=== PATIENT | female | born 1975 | race Two or more races ===

== ENCOUNTER 2016-05-15 08:59 | Emergency (ER) | payer OTHER ==
[2016-05-15 09:15] VITALS: BP 134/91
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
== END 2016-05-15 11:50 | disposition home or self-care (01) ==
LOC: UCEAST 08:59
DX: J32.9 Chronic sinusitis, unspecified (principal); N89.8 Other specified noninflammatory disorders of vagina; R35.0 Frequency of micturition; E11.9 Type 2 diabetes mellitus without complications; Z90.49 Acquired absence of other specified parts of digestive tract; Z32.02 Encounter for pregnancy test, result negative; Z77.22 Contact with and (suspected) exposure to environmental tobacco smoke (acute) (chronic)
CPT/HCPCS: 81002; 81025; 87070; 87086; 87480; 87491; 87510; 87591; 87661; 99212; G0463

== ENCOUNTER 2016-05-19 08:49 | Emergency (ER) | payer OTHER ==
[2016-05-19] MEDS ORDERED: Ketorolac INJ* 60 MG/2 ML VIAL IM ONE (12:31)
[2016-05-19] MEDS ORDERED: LoraTADine TAB(NF) 10 MG TAB (AUTOSUB to CETIRIZINE) PO ONE (12:35)
[2016-05-19] MEDS ORDERED: Cetirizine* 10 MG TAB PO SCH (15:00)
[2016-05-19 16:19] VITALS: BP 136/82
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
== END 2016-05-19 16:18 | disposition home or self-care (01) ==
LOC: ED 08:49
DX: J32.9 Chronic sinusitis, unspecified (principal); J45.909 Unspecified asthma, uncomplicated; I10 Essential (primary) hypertension; G47.30 Sleep apnea, unspecified; E11.9 Type 2 diabetes mellitus without complications
CPT/HCPCS: 96372; 99283; A9270-GY; J1885

== ENCOUNTER 2016-08-08 07:48 | Emergency (ER) | payer MEDICAID, OTHER ==
[2016-08-08 08:08] VITALS: BP 152/81
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
== END 2016-08-08 08:57 | disposition home or self-care (01) ==
LOC: UCEAST 07:48
DX: H65.90 Unspecified nonsuppurative otitis media, unspecified ear (principal); J32.9 Chronic sinusitis, unspecified; B37.0 Candidal stomatitis; J45.909 Unspecified asthma, uncomplicated; E66.9 Obesity, unspecified
CPT/HCPCS: 99212; G0463

== ENCOUNTER 2016-08-14 20:44 | Emergency (ER) | payer MEDICAID ==
[2016-08-14 21:14] VITALS: BP 146/84
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
== END 2016-08-14 21:37 | disposition home or self-care (01) ==
LOC: UCEAST 20:44
DX: J06.9 Acute upper respiratory infection, unspecified (principal); R05 Cough; E11.9 Type 2 diabetes mellitus without complications; I10 Essential (primary) hypertension; F41.8 Other specified anxiety disorders; Z90.49 Acquired absence of other specified parts of digestive tract; Z77.22 Contact with and (suspected) exposure to environmental tobacco smoke (acute) (chronic)
CPT/HCPCS: 99212; G0463

== ENCOUNTER 2017-01-14 15:11 | Emergency (ER) | payer OTHER ==
[2017-01-14] MEDS ORDERED: LORazepam TAB(*) 1 MG PO ONE (15:42)
[2017-01-14 16:14] LABS: Hematocrit 35 % (35-47); Hemoglobin 11.4 g/dl (12.0-16.0); Mean Corpuscular HGB Conc 33 g/dl (31-36); Mean Corpuscular Hemoglobin 27 pg (27-31); Mean Corpuscular Volume 84 fL (80-97); Mean Platelet Volume 8 um3 (7.4-10.4); Red Blood Count 4.16 10^6/ul (4.0-5.4); Red Cell Distribution Width 14 % (10.5-15); White Blood Count 10.9 10^3/ul (3.5-10.8)
[2017-01-14 16:25] LABS: ALT 36 U/L (7-52); AST 22 U/L (13-39); Alkaline Phosphatase 65 U/L (34-104); Anion Gap 7 mmol/L (2-11); BUN/Creatinine Ratio 11.8 (8-20); Blood Urea Nitrogen 8 mg/dL (6-24); CO2 Carbon Dioxide 27 mmol/L (22-32); Calcium 8.6 mg/dL (8.6-10.3); Chloride 100 mmol/L (101-111); EGFR African American 120.9 (>60); Globulin 3.5 g/dL (2-4); Glucose 99 mg/dL (70-100); Sodium 134 mmol/L (133-145); Total Protein 7.5 g/dL (6.4-8.9)
[2017-01-14] MEDS ORDERED: Potassium Chlor TAB* 20 MEQ TAB.ER PO ONE (16:28)
[2017-01-14 16:33] LABS: Urine Bacteria Absent (Absent); Urine Bilirubin Negative (Negative); Urine Glucose Negative (Negative); Urine Nitrite Negative (Negative)
[2017-01-14 16:39] LABS: Benzodiazepine Urine Screen None Detected (None Detect)
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
[2017-01-14 17:06] VITALS: BP 132/85
[2017-01-14 17:21] LABS: Acetaminophen < 15 mcg/mL; Alcohol < 10 mg/dL (<10); Salicylate < 2.50 mg/dL (<30)
[2017-01-14 17:36] LABS: TSH (Thyroid Stimulating Horm) 1.01 mcIU/mL (0.34-5.60)
== END 2017-01-14 17:05 | disposition home or self-care (01) ==
LOC: ED 15:11
DX: F41.9 Anxiety disorder, unspecified (principal); R20.2 Paresthesia of skin; Z04.8 Encounter for examination and observation for other specified reasons; E11.9 Type 2 diabetes mellitus without complications; I10 Essential (primary) hypertension; J45.909 Unspecified asthma, uncomplicated; G47.10 Hypersomnia, unspecified; G47.30 Sleep apnea, unspecified; F32.9 Major depressive disorder, single episode, unspecified; Z90.49 Acquired absence of other specified parts of digestive tract
CPT/HCPCS: 36415; 80053; 80307; 80320; 80329; 81003; 81015; 84443; 85025; 99282; A9270-GY; G0480

== ENCOUNTER 2017-05-09 18:59 | Emergency (ER) | payer SELFPAY ==
[2017-05-09 19:22] VITALS: BP 151/94
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
== END 2017-05-09 20:50 | disposition home or self-care (01) ==
LOC: ED 18:59
DX: Z04.1 Encounter for examination and observation following transport accident (principal); R51 Headache; M51.34 Other intervertebral disc degeneration, thoracic region; M54.9 Dorsalgia, unspecified; Z86.79 Personal history of other diseases of the circulatory system; Z86.39 Personal history of other endocrine, nutritional and metabolic disease
CPT/HCPCS: 72070; 72110; 99282

== ENCOUNTER 2018-06-07 10:16 | Emergency (ER) | payer OTHER ==
[2018-06-07 12:58] VITALS: BP 143/83
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
== END 2018-06-07 13:25 | disposition short-term general hospital (02) ==
LOC: UCEAST 10:16
DX: R07.9 Chest pain, unspecified (principal); E11.9 Type 2 diabetes mellitus without complications; I10 Essential (primary) hypertension; J45.909 Unspecified asthma, uncomplicated; Z91.09 Other allergy status, other than to drugs and biological substances
CPT/HCPCS: 99212; G0463

== ENCOUNTER 2018-10-22 23:55 | Emergency (ER) | payer OTHER ==
[2018-10-23] MEDS ORDERED: Meclizine TAB* 12.5 MG PO ONE (00:12)
[2018-10-23] MEDS ORDERED: Ondansetron INJ* 2 MG/ML VIAL IV ONE (00:12)
[2018-10-23] MEDS ORDERED: NS 0.9% 1000 ML** 2,000 ML IV ONE (00:12)
[2018-10-23] MEDS ORDERED: Diphenoxylat/Atrop 2.5-0.025M* 1 TAB PO ONE (00:13)
[2018-10-23 00:39] LABS: ABS Basophils 0.1 10^3/ul (0-0.2); ABS Eosinophils 0.2 10^3/ul (0-0.6); ABS Lymphocytes 2.7 10^3/ul (1.0-4.8); ABS Monocytes 0.5 10^3/ul (0-0.8); ABS Neutrophils 6.2 10^3/ul (1.5-7.7); Eosinophil % 1.9 %; Hematocrit 35 % (35-47); Hemoglobin 11.7 g/dL (12.0-16.0); Lymphocyte % 28.2 %; Mean Corpuscular HGB Conc 33 g/dL (31-36); Mean Corpuscular Hemoglobin 28 pg (27-31); Mean Corpuscular Volume 85 fL (80-97); Mean Platelet Volume 8.4 fL (7.4-10.4); Nucleated Red Blood Cells % 0.1; Platelet Count 161 10^3/uL (150-450); Red Blood Count 4.14 10^6 /uL (3.70-4.87); Red Cell Distribution Width 13 % (10-15); White Blood Count 9.7 10^3/uL (3.5-10.8)
[2018-10-23 00:53] LABS: ALT 17 U/L (7-52); AST 16 U/L (13-39); Albumin/Globulin Ratio 1.2 (1-3); Alkaline Phosphatase 67 U/L (34-104); Amylase 45 U/L (29-103); Anion Gap 6 mmol/L (2-11); BUN/Creatinine Ratio 13.7 (8-20); Blood Urea Nitrogen 10 mg/dL (6-24); CO2 Carbon Dioxide 28 mmol/L (22-32); Calcium 8.7 mg/dL (8.6-10.3); Chloride 102 mmol/L (101-111); EGFR African American 104.3 (>60); EGFR Non-African American 86.2 (>60); Globulin 3.3 g/dL (2-4); Glucose 138 mg/dL (70-100); Potassium 3.1 mmol/L (3.5-5.0); Sodium 136 mmol/L (135-145); Total Protein 7.3 g/dL (6.4-8.9)
[2018-10-23] MEDS ORDERED: Potassium Chlor TAB* 20 MEQ TAB.ER PO ONE (00:54)
[2018-10-23 00:58] LABS: HCG Pregnancy < 0.60 mIU/mL
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
[2018-10-23 02:42] VITALS: BP 138/81
== END 2018-10-23 02:44 | disposition home or self-care (01) ==
LOC: ED 23:55
DX: K52.9 Noninfective gastroenteritis and colitis, unspecified (principal); R42 Dizziness and giddiness; E11.9 Type 2 diabetes mellitus without complications; I10 Essential (primary) hypertension; J45.909 Unspecified asthma, uncomplicated
CPT/HCPCS: 36415; 80053; 82150; 83690; 84702; 85025; 96361; 96374; 99283; A9270-GY; J2405

== ENCOUNTER 2018-11-15 09:07 | Emergency (ER) | payer OTHER ==
[2018-11-15 09:30] VITALS: BP 119/82
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
== END 2018-11-15 10:57 | disposition home or self-care (01) ==
LOC: UCEAST 09:07
DX: J06.9 Acute upper respiratory infection, unspecified (principal); M54.6 Pain in thoracic spine; R07.9 Chest pain, unspecified; I10 Essential (primary) hypertension; J45.909 Unspecified asthma, uncomplicated
CPT/HCPCS: 71046; 99212; G0463

== ENCOUNTER 2018-12-12 10:24 | Emergency (ER) | payer OTHER ==
[2018-12-12 10:44] VITALS: BP 138/92
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
== END 2018-12-12 11:20 | disposition home or self-care (01) ==
LOC: UCEAST 10:24
DX: I10 Essential (primary) hypertension (principal); J32.9 Chronic sinusitis, unspecified
CPT/HCPCS: 99212; G0463

== ENCOUNTER 2019-04-23 10:57 | Emergency (ER) | payer OTHER ==
[2019-04-23 11:25] VITALS: BP 124/77
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
== END 2019-04-23 12:46 | disposition home or self-care (01) ==
LOC: UCEAST 10:57
DX: J02.9 Acute pharyngitis, unspecified (principal); H92.02 Otalgia, left ear; I10 Essential (primary) hypertension; J45.909 Unspecified asthma, uncomplicated; Z91.09 Other allergy status, other than to drugs and biological substances
CPT/HCPCS: 87651; 99211; G0463